=== PATIENT | female | born 2000 | race Caucasian/White ===

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

== ENCOUNTER 2021-04-28 22:16 | Emergency (ER) | payer OTHER ==
[~2021-04-28] VITALS: Ht 154.9 cm; Wt 59.9 kg
[2021-04-28 22:58] VITALS: BP 114/76
--- NOTE | 2021-04-28 23:01 | NUR ---
TO LOBBY A/W BED AMBULATORY
--- NOTE | 2021-04-28 23:30 | NUR ---
PATIENT PRESENTS TO ED WITH C/O PAINFUL URINATION . PT STATES HAS HAD FREQUENT UTI'S . DENIES N/V/D; SKIN IS PINK/WARM/DRY; AAOX4 WITH EVEN AND STEADY GAIT PT DENIES ANY FEVER, CP, SOB, OR COUGH AT THIS TIME; VSS; PATIENT POSITIONED FOR COMFORT; HOB ELEVATED; BEDRAILS UP X2; BED DOWN. ER MD MADE AWARE OF PT STATUS.
--- NOTE | 2021-04-28 23:30 | NUR ---
DR SOTO AT BEDSIDE FOR EXAM
--- NOTE | 2021-04-28 23:30 | NUR ---
Dr. Suarez examining patient.
[2021-04-28] MEDS ORDERED: NACL 0.9% 1,000 ML IV ONE (23:35)
[2021-04-28] MEDS ORDERED: KETOROLAC 30 MG/ML VIAL IVP ONE (23:35)
--- NOTE | 2021-04-28 23:40 | NUR ---
LAB AT BEDSIDE
[2021-04-28 23:49] LABS: APPEARANCE,URINE CLOUDY (CLEAR); BILIRUBIN,URINE NEGATIVE (NEGATIVE); BLOOD, URINE 3+ (NEGATIVE); COLOR,URINE YELLOW (YELLOW); LEUKOCYTE ESTERASE ,URINE TRACE (NEGATIVE); NITRITE, URINE NEGATIVE (NEGATIVE); UGLUCOSE NEGATIVE (NEGATIVE)
[2021-04-28] MEDS ORDERED: cefTRIAXone 1,000 MG VIAL ONE (23:56)
[2021-04-28 23:58] LABS: RBC,URINE 0-5 /HPF (0-5); WBC,URINE 60-80 /HPF (0-5)
--- NOTE | 2021-04-29 00:50 | NUR ---
AMBULATED TO FOR ADDITIONAL URINE SAMPLE
[2021-04-29] MEDS ORDERED: NITR100C7 PO (01:17)
[2021-04-29] MEDS ORDERED: PHEN-1877 PO (01:17)
--- NOTE | 2021-04-29 01:25 | NUR ---
Patient discharged with v/s stable. Written and verbal after care instructions given and explained. Patient alert, oriented and verbalized understanding of instructions. Ambulatory with steady gait. All questions addressed prior to discharge. ID band removed. Patient advised to follow up with PMD. Rx of PYRIDIUM & MACROBID given. Patient educated on indication of medication including possible reaction and side effects. Opportunity to ask questions provided and answered.
== END 2021-04-29 01:25 | disposition home or self-care (01) ==
LOC: MED 22:16
DX: N39.0 Urinary tract infection, site not specified (principal); Z79.899 Other long term (current) drug therapy
CPT/HCPCS: 36415; 81001; 81025; 87040; 87086; 96365; 96375; 99284; J0696; J1885; J7030; 99283